=== PATIENT | male | born 1975 | race Asian ===

== ENCOUNTER 2021-08-01 18:19 | Observation (INO) ==
[2021-08-01] MEDS ORDERED: Isovue-370 500 ML BOTTLE IVP ONE (18:43)
[2021-08-01] MEDS ORDERED: 0.9 % Sodium Chloride 1,000 ML IVC ONE (18:46)
[2021-08-01 19:05] LABS: INR 1.1; Prothrombin Time 11.7 Seconds (9.4-12.1)
[2021-08-01 19:18] LABS: VBG HCO3 24 mEq/L (21-27); VBG PCO2 45 mmHg (41-51); VBG PH 7.34 pH Units (7.32-7.42); VBG PO2 39 mmHg (25-50)
[2021-08-01 19:18] LABS: Alanine Aminotransferase 33 Units/L (7-52); Albumin 4.8 g/dL (3.5-5.7); Albumin/Globulin Ratio 1.8 (1.1-2.2); Alkaline Phosphatase 52 Units/L (34-104); Aspartate Amino Transferase 35 Units/L (13-39); BUN/Creatinine Ratio 9 (6-26); Bilirubin,Total 1.1 mg/dL (0.3-1.0); Blood Urea Nitrogen 19 mg/dL (6-20); Calcium 9.9 mg/dL (8.6-10.3); Carbon Dioxide 21 mEq/L (23-29); Chloride 101 mEq/L (98-107); Creatine Kinase 449 Units/L (30-223); Ethanol < 10 mg/dL (Less than 10); Globulin 2.7 g/dL (2.4-3.5); Glucose 211 mg/dL (70-105); Magnesium 2.2 mg/dL (1.6-2.6); Osmolality,Calculated 291 (280-300); Potassium 3.9 mEq/L (3.5-5.1); Sodium 136 mEq/L (136-145); Total Protein 7.5 g/dL (6.4-8.9); Troponin I 0.06 ng/mL (< 0.04); eGFR For African Americans 41 (> 60); eGFR For Non-African Americans 34 (> 60)
[2021-08-01 19:35] LABS: Basophils # 0.1 K/mcL (0.0-0.2); Basophils % 0.5 %; Eosinophils # 0.1 K/mcL (0.0-0.6); Eosinophils % 1.2 %; Hematocrit 43.9 % (37.5-50.1); Hemoglobin 14.9 g/dL (12.9-16.9); Immature Granulocytes % 1.6 % (0-4); Lymphocytes # 3.5 K/mcL (0.6-4.6); Lymphocytes % 32.6 %; Mean Corpuscular HGB Conc 33.9 g/dL (31.6-35.5); Mean Corpuscular Hemoglobin 27.2 pg (28.0-33.3); Mean Corpuscular Volume 80.1 fL (83.0-100.0); Mean Platelet Volume 9.6 fL (9.4-12.4); Monocytes # 0.4 K/mcL (0.0-1.3); Monocytes % 3.9 %; Neutrophils # 6.5 K/mcL (1.6-8.9); Platelet Count 261 K/mcL (140-400); Red Blood Count 5.48 M/mcL (4.19-5.50); Red Cell Distribution Width 11.8 % (11.5-14.5); Segmented Neutrophils % 60.2 %; White Blood Count 10.7 K/mcL (4.3-11.1)
[2021-08-01] MEDS ORDERED: 0.9 % Sodium Chloride 500 ML IVC ONE (19:43)
[2021-08-01 20:27] LABS: Amphetamine Screen,Urine Negative ng/mL (Cutoff=1000); Barbiturate Screen,Urine Negative ng/mL (Cutoff=200); Benzodiazepines Screen,Urine Negative ng/mL (Cutoff=200); Cannabinoid Screen,Urine Negative ng/mL (Cutoff = 50); Cocaine Screen,Urine Negative ng/mL (Cutoff= 300); Opiate Screen,Urine Negative ng/mL (Cutoff=300); Phencyclidine Screen,Urine Negative ng/mL (Cutoff=25)
[2021-08-01] MEDS ORDERED: Acetaminophen 325 MG TABLET PO ONE (20:45)
[2021-08-01] MEDS ORDERED: Ondansetron 4 MG/2 ML VIAL IVP ONE (20:45)
[2021-08-01 20:53] LABS: RBC,Urine 0-3 per hpf (0-3)
[2021-08-01 21:18] LABS: Bacteria,Urine Few per hpf (None-Few)
[2021-08-01 21:27] LABS: Bilirubin,Urine Negative (Negative); Blood,Urine Small (Negative); Clarity,Urine Clear (Clear); Color,Urine Light-Yellow (Yellow); Glucose,Urine (UA) Normal (Normal); Ketones,Urine Negative (Negative); Leukocyte Esterase,Urine Negative (Negative); Nitrite,Urine Negative (Negative); Protein,Urine 30 mg/dL (Neg-Trace); Specific Gravity,Urine 1.017 (1.010-1.025); Urobilinogen,Urine Normal (Normal)
[2021-08-01 21:29] LABS: WBC,Urine 0-3 per hpf (0-3)
[2021-08-01 22:19] LABS: Calcium 8.6 mg/dL (8.6-10.3); Potassium 4.1 mEq/L (3.5-5.1)
[2021-08-01 22:27] LABS: Troponin I 0.11 ng/mL (< 0.04)
[2021-08-02] MEDS ORDERED: Perflutren Lipid Microsphere 1.3 ML in 0.9 % Sodium Chloride 8.7 ML IVP PRN (01:30)
[2021-08-02] MEDS ORDERED: Naloxone 0.4 MG/ML INJ IVP PRN (02:00)
[2021-08-02] MEDS ORDERED: Acetaminophen 325 MG TABLET PO PRN (02:00)
[2021-08-02] MEDS ORDERED: Nitroglycerin 0.4 MG TAB.SUBL SL PRN (02:05)
[2021-08-02] MEDS: 0.9 % Sodium Chloride 1,000 ML IVC SCH ×2 (03:08→12:27)
[2021-08-02 04:42] LABS: Hematocrit 39.1 % (37.5-50.1); Mean Corpuscular HGB Conc 33.5 g/dL (31.6-35.5); Mean Corpuscular Volume 80.5 fL (83.0-100.0); Mean Platelet Volume 9.5 fL (9.4-12.4); Platelet Count 177 K/mcL (140-400); Red Blood Count 4.86 M/mcL (4.19-5.50); Red Cell Distribution Width 11.9 % (11.5-14.5); White Blood Count 13.2 K/mcL (4.3-11.1)
[2021-08-02 04:46] LABS: Hemoglobin 13.1 g/dL (12.9-16.9)
[2021-08-02 04:58] LABS: BUN/Creatinine Ratio 17 (6-26); Blood Urea Nitrogen 24 mg/dL (6-20); Calcium 8.6 mg/dL (8.6-10.3); Carbon Dioxide 22 mEq/L (23-29); Chloride 109 mEq/L (98-107); Glucose 130 mg/dL (70-105); Osmolality,Calculated 292 (280-300); Potassium 3.7 mEq/L (3.5-5.1); Sodium 138 mEq/L (136-145); eGFR For African Americans > 60 (> 60); eGFR For Non-African Americans 55 (> 60)
[2021-08-02 05:00] LABS: Chol/HDL Ratio 3.3 (0-4.9)
[2021-08-02] MEDS ORDERED: *HR* Heparin 5,000 UNIT/ML VIAL IVP PRN ×2 (05:15)
[2021-08-02] MEDS ORDERED: *HR* Heparin 5,000 UNIT/ML VIAL IVP ONE (05:15)
[2021-08-02] MEDS ORDERED: Heparin 25,000UNIT/250ML 1/2NS 25,000 UNIT/250 ML IV.SOLN IVC SCH (05:15)
[2021-08-02 05:23] LABS: C-Reactive Protein < 5 mg/L (Less than 10); Creatine Kinase 812 Units/L (30-223)
[2021-08-02] MEDS ORDERED: *HR* Heparin 5,000 UNIT/ML VIAL SQ SCH (06:00)
[2021-08-02 06:20] LABS: Estimated Average Glucose 128 mg/dl; Hemoglobin A1C 6.1 %
[2021-08-02] MEDS: Aspirin Enteric Coated 81 MG Tablet PO SCH (09:06)
[2021-08-02] MEDS ORDERED: *HR* FentaNYL (PF) 100 MCG/2 ML VIAL ONE (12:58)
[2021-08-02] MEDS ORDERED: *HR* Midazolam HCl 2 MG/2 ML VIAL ONE (12:58)
[2021-08-02 13:05] LABS: Heparin anti-factor XA UFH 0.46 IU/mL (0.30-0.70)
[2021-08-02 13:06] LABS: INR 1.3; Prothrombin Time 14.3 Seconds (9.4-12.1)
[2021-08-02] MEDS ORDERED: Nitroglycerin 1,000 MCG/5 ML VIAL IV ONE (13:57)
[2021-08-02] MEDS ORDERED: 0.9 % Sodium Chloride 1,000 ML ONE (13:57)
[2021-08-02] MEDS ORDERED: Heparin 1,000 UNITS/500 mL 500 ML ONE (13:57)
[2021-08-02] MEDS ORDERED: ISOVUE-370 200 ML INFUS..BTL ONE (13:57)
[2021-08-02] MEDS ORDERED: *HR* Heparin 10,000 UNIT/10 ML VIAL ONE (13:57)
[2021-08-02] MEDS: Ringers Solution, Lactated 1,000 ML IVC SCH ×2 (15:16→17:24)
[2021-08-03 05:46] LABS: Hematocrit 38.9 % (37.5-50.1); Hemoglobin 12.8 g/dL (12.9-16.9); Mean Corpuscular HGB Conc 32.9 g/dL (31.6-35.5); Mean Corpuscular Hemoglobin 26.8 pg (28.0-33.3); Mean Corpuscular Volume 81.6 fL (83.0-100.0); Mean Platelet Volume 9.8 fL (9.4-12.4); Platelet Count 152 K/mcL (140-400); Red Blood Count 4.77 M/mcL (4.19-5.50); White Blood Count 7.6 K/mcL (4.3-11.1)
[2021-08-03 06:14] LABS: BUN/Creatinine Ratio 12 (6-26); Blood Urea Nitrogen 16 mg/dL (6-20); Calcium 8.4 mg/dL (8.6-10.3); Carbon Dioxide 25 mEq/L (23-29); Chloride 108 mEq/L (98-107); Glucose 105 mg/dL (70-105); Osmolality,Calculated 286 (280-300); Potassium 3.5 mEq/L (3.5-5.1); Sodium 137 mEq/L (136-145); eGFR For African Americans > 60 (> 60); eGFR For Non-African Americans 57 (> 60)
[2021-08-03 07:25] VITALS: PULSE 64; TEMP 98.5
[2021-08-03] MEDS ORDERED: Ringers Solution, Lactated 1,000 ML IVC ONE ×2 (08:04→13:50)
[2021-08-03] MEDS: Aspirin Enteric Coated 81 MG Tablet PO SCH (08:27)
[2021-08-03 10:59] VITALS: BP 128/78; O2SAT 96
== END 2021-08-03 16:30 | disposition home or self-care (01) ==
LOC: 3BNU 18:19 → EMEROOARM 18:19 → SUATTDRO 23:33 → 3BNU 08-02 00:01
PROVIDERS: ADMIT Internal Medicine; ATTEND Student in an Organized Health Care Education/Training Program